=== PATIENT | male | born 1955 | race Caucasian/White ===

== ENCOUNTER → 2021-02-26 | Day surgery (SDC) | payer MEDICARE, MEDICAID ==
[~2021-02-26] VITALS: Ht 157.5 cm; Wt 62.0 kg
[~2021-02-26] MED LIST: ACETYLCHOLINE CHLORIDE INTRAOCULAR SOLUTION 1:100 ELECTROLYTE DILUENT IO ONE; BALANCED SALT IRRIG SOLN 15ML ONE; BUPIVACAINE HCL/PF 0.75% (7.5MG/ML) 10ML ONE; HYALURONATE SODIUM 10 MG/ML 0.55ML SYRINGE IO ONE; HYDROMORPHONE HCL/PF 2MG/ML (OR) ONE; LIDOCAINE HCL 2%/EPINEPHRINE 1:100,000 20 ML VIAL INFIL ONE; MEPERIDINE HCL/PF 25MG/ML CPJ IV PRN; MITOMYCIN 0.2 MG KIT OP SCH; MITOMYCIN OP SCH; NEO/POLYMYX B SULF/DEXAMETH OPHTH OINT 3.5GM ONE; ONDANSETRON HCL 4MG/2ML INJ IV PRN; PHENYLEPHRINE HCL 2.5% OPHTH DROPS 2ML ONE; PREDNISOLONE ACETATE 1% OPHTH DROPS 5ML ONE; PROPOFOL 200MG/20ML VIAL IV ONE; TETRACAINE 0.5% OPHTH DROPS 4ML ONE
[2021-02-26 06:29] LABS: CHLORIDE 98 mEq/L (98-107)
[2021-02-26 06:33] LABS: BASOPHILS % 1.3 % (0.0-2.0); EOSINOPHILS % 3.4 % (0.0-5.0); HEMATOCRIT. 30.1 % (42.0-52.0); HEMOGLOBIN. 9.8 g/dL (14.0-18.0); LYMPHOCYTES % 21.9 % (20.0-50.0); MEAN CORPUSCULAR HEMOGLOBIN 32.9 pg (28.0-32.0); MEAN CORPUSCULAR VOLUME 101.3 fL (80.0-94.0); MONOCYTES % 12.8 % (2.0-8.0); NEUTROPHILS % 60.6 % (40.0-76.0); PLATELET 113 x1000/uL (130-400); RED BLOOD CELL COUNT 2.97 mill/uL (4.7-6.1); RED CELL DISTRIBUTION WIDTH 14.3 % (11.6-14.6)
[2021-02-26 06:35] LABS: INR 1.1; PROTHROMBIN TIME 11.4 sec (9.6-11.0)
[2021-02-26] MEDS: LABETALOL 5MG/ML SYR 20 MG/4 ML SYRINGE IV PRN ×4 (09:31→10:15)
[2021-02-26 10:15] VITALS: BP 186/84
== END | disposition home or self-care (01) ==
LOC: ER 05:34 → OR 07:50
PROVIDERS: ATTEND Ophthalmology
DX: E11.39 Type 2 diabetes mellitus with other diabetic ophthalmic complication (principal); H21.01 Hyphema, right eye; E11.36 Type 2 diabetes mellitus with diabetic cataract; E11.22 Type 2 diabetes mellitus with diabetic chronic kidney disease; N18.9 Chronic kidney disease, unspecified; H53.8 Other visual disturbances; R03.0 Elevated blood-pressure reading, without diagnosis of hypertension; Z98.42 Cataract extraction status, left eye; Z87.891 Personal history of nicotine dependence; Z79.899 Other long term (current) drug therapy; Z98.890 Other specified postprocedural states; Z20.822 Contact with and (suspected) exposure to COVID-19
CPT/HCPCS: 36415; 66170; 80053; 82962; 85025; 85610; 87426; 93005; 99285; J1170; J2704; J3490

== ENCOUNTER 2021-03-29 05:02 | Day surgery (SDC) | payer MEDICARE, MEDICAID ==
[~2021-03-29] VITALS: Ht 165.1 cm; Wt 68.0 kg
[2021-03-29 06:49] LABS: BASOPHILS % 1.6 % (0.0-2.0); HEMATOCRIT. 30.6 % (42.0-52.0); HEMOGLOBIN. 10.1 g/dL (14.0-18.0); LYMPHOCYTES % 20.2 % (20.0-50.0); MEAN CORPUSCULAR HEMOGLOBIN 32.8 pg (28.0-32.0); MEAN CORPUSCULAR VOLUME 99.6 fL (80.0-94.0); MEAN PLATELET VOLUME 10.7 fl (7.4-10.4); MONOCYTES % 13.6 % (2.0-8.0); NEUTROPHILS % 61.6 % (40.0-76.0); PLATELET 123 x1000/uL (130-400); RED BLOOD CELL COUNT 3.08 mill/uL (4.7-6.1); RED CELL DISTRIBUTION WIDTH 14.8 % (11.6-14.6)
[2021-03-29 06:59] LABS: CHLORIDE 103 mEq/L (98-107)
[2021-03-29] MEDS ORDERED: TROPICAMIDE 1% OPHTH DROPS 15ML ONE (08:09)
[2021-03-29] MEDS ORDERED: PREDNISOLONE ACETATE 1% OPHTH DROPS 5ML ONE (08:09)
[2021-03-29] MEDS ORDERED: ACETYLCHOLINE CHLORIDE INTRAOCULAR SOLUTION 1:100 ELECTROLYTE DILUENT IO ONE (08:09)
[2021-03-29] MEDS ORDERED: BUPIVACAINE HCL/PF 0.75% (7.5MG/ML) 10ML ONE (08:09)
[2021-03-29] MEDS ORDERED: NEO/POLYMYX B SULF/DEXAMETH OPHTH OINT 3.5GM ONE (08:09)
[2021-03-29] MEDS ORDERED: TETRACAINE 0.5% OPHTH DROPS 4ML ONE (08:09)
[2021-03-29] MEDS ORDERED: BALANCED SALT IRRIG SOLN 15ML ONE (08:09)
[2021-03-29] MEDS ORDERED: LIDOCAINE HCL 2%/EPINEPHRINE 1:100,000 20 ML VIAL INFIL ONE (08:09)
[2021-03-29] MEDS ORDERED: CIPROFLOXACIN 0.3% OPHTH SOLN 2.5ML ONE (08:09)
[2021-03-29] MEDS ORDERED: PHENYLEPHRINE HCL 10% OPHTH DROPS 5ML ONE (08:09)
[2021-03-29] MEDS ORDERED: LIDOCAINE HCL/PF 2% 20 MG/ML 10ML VIAL ONE (08:09)
[2021-03-29] MEDS ORDERED: DEXTROSE 50% WATER 50ML SYRINGE IV ONE ×3 (09:15→13:00)
[2021-03-29] MEDS ORDERED: INSULIN REGULAR (HUMULIN R) 300UNITS/3ML VIAL SUBCUT ONE (09:15)
[2021-03-29] MEDS ORDERED: SODIUM POLYSTYRENE SULFONATE 15 G/60 ML BOT PO ONE (09:15)
[2021-03-29 10:18] VITALS: BP 169/70
[2021-03-29] MEDS ORDERED: BALANCED SALT IRRIG SOLN COMB1 500ML OP ONE (11:30)
[2021-03-29] MEDS ORDERED: TRYPAN BLUE 0.5 ML DISP.SYRIN IO ONE (11:36)
[2021-03-29] MEDS ORDERED: HYALURONATE SODIUM 10 MG/ML 0.55ML SYRINGE IO ONE (11:50)
[2021-03-29] MEDS ORDERED: MIDAZOLAM HCL 2 MG/2 ML VIAL ONE (11:53)
[2021-03-29] MEDS ORDERED: FENTANYL CITRATE/PF 50MCG/ML 2ML VIAL ONE (11:53)
[2021-03-29] MEDS ORDERED: PROPOFOL 200MG/20ML VIAL IV ONE (11:53)
[2021-03-29] MEDS ORDERED: DEXTROSE 50% WATER 50ML SYRINGE IV NR (13:00)
[2021-03-29] MEDS ORDERED: HYDRALAZINE 20MG/ML VIAL IV PRN (13:00)
== END 2021-03-29 17:37 | disposition home or self-care (01) ==
LOC: ER 05:02 → OR 05:03
PROVIDERS: ATTEND Ophthalmology
DX: H25.22 Age-related cataract, morgagnian type, left eye (principal); I12.0 Hypertensive chronic kidney disease with stage 5 chronic kidney disease or end stage renal disease; N18.6 End stage renal disease; E78.5 Hyperlipidemia, unspecified; Z99.2 Dependence on renal dialysis; Z79.899 Other long term (current) drug therapy; Z98.890 Other specified postprocedural states
CPT/HCPCS: 36415; 66982; 80053; 82962; 84132; 85025; 87426; 93005; 99285; J0360; J1815; J2250; J2704; J3010; J3490; Q9957; V2632